=== PATIENT | male | born 1990 | race Caucasian/White ===

== ENCOUNTER → 2019-04-02 | Outpatient (CLI) | payer SELFPAY | LOC: OD 10:12 | PROVIDERS: ATTEND Student in an Organized Health Care Education/Training Program | DX: R76.0 Raised antibody titer (principal) | CPT/HCPCS: 36415 ==

== ENCOUNTER 2019-04-19 12:01 | Emergency (ER) | payer SELFPAY ==
[2019-04-19 12:06] VITALS: BP 156/79
--- NOTE | 2019-04-19 13:01 | RADIOLOGY REPORT (SQ) ---
EXAM DESCRIPTION: SHOULDER RIGHT 2 OR MORE VIEWS COMPLETED DATE/TIME: 04/19/2019 12:39 pm REASON FOR STUDY: pain after heavy lifting COMPARISON: None. NUMBER OF VIEWS: Three views. TECHNIQUE: Internal rotation, external rotation, and Y view images acquired of the right shoulder. LIMITATIONS: None. FINDINGS: MINERALIZATION: Normal. BONES: No acute fracture. No worrisome bone lesions. JOINTS: No glenohumeral dislocation. No acromioclavicular joint widening. VISUALIZED LUNGS AND RIBS: No pneumothorax. No rib fracture. SOFT TISSUES: No radiopaque foreign body. OTHER: No other significant finding. IMPRESSION: NEGATIVE STUDY OF THE RIGHT SHOULDER. NO RADIOGRAPHIC EVIDENCE OF ACUTE INJURY. TECHNICAL DOCUMENTATION: JOB ID: [id number] [employer]- All Rights Reserved Reading location - IP/workstation name: [email or web address]
--- NOTE | 2019-04-19 13:18 | ER Document Report ---
HPI - HPI Time Seen by Provider: 04/19/19 12:14 Pain Level: 2 Notes: Patient is a 29-year-old male complaining of right shoulder pain after lifting boxes at work yesterday. Patient denies any direct trauma to the area. Patient denies taking any medications prior to arrival. He states the pain is worse with movement. - CONSTITUTIONAL Constitutional: DENIES: Fever, Chills - EENT EENT: DENIES: Sore Throat, Ear Pain, Eye problems - NEURO Neurology: DENIES: Headache, Weakness, Vision blurred, Dizzinesss / Vertigo - CARDIOVASCULAR Cardiovascular: DENIES: Chest pain - RESPIRATORY Respiratory: DENIES: Trouble Breathing, Coughing - GASTROINTESTINAL Gastrointestinal: DENIES: Abdominal Pain, Black / Bloody Stools - URINARY Urinary: DENIES: Dysuria, Urgency, Frequency - MUSCULOSKELETAL Musculoskeletal: REPORTS: Extremity pain - right shouder Past Medical History - General Information source: Patient - Social History Smoking Status: Former Smoker Chew tobacco use (# tins/day): No Frequency of alcohol use: None Drug Abuse: None Family History: Reviewed & Not Pertinent Patient has suicidal ideation: No Patient has homicidal ideation: No - Medical History Medical History: Negative Renal/ Medical History: Denies: Hx Peritoneal Dialysis Past Surgical History: Reports: Hx Appendectomy - Immunizations Immunizations up to date: Yes Vertical Provider Document - CONSTITUTIONAL Notes: PHYSICAL EXAMINATION: GENERAL: Well-appearing, well-nourished and in no acute distress. HEAD: Atraumatic, normocephalic. EYES: Pupils equal round extraocular movements intact, conjunctiva are normal. ENT: Nares patent NECK: Normal range of motion LUNGS: No respiratory distress Musculoskeletal: Normal range of motion to right shoulder, tenderness over scapular area with palpation. Center Medical Director strength is equal to bilateral upper extremities, strong radial pulse. Normal sensation and motor distal to area of pain. NEUROLOGICAL: Normal speech, normal gait. PSYCH: Normal mood, normal affect. SKIN: Warm, Dry, normal turgor, no rashes or lesions noted. - INFECTION CONTROL TRAVEL OUTSIDE OF THE [place] IN LAST 30 DAYS: No Course - Re-evaluation Re-evalutation: X-ray negative for any acute fracture or dislocation of the shoulder. Likely musculoskeletal strain due to lifting boxes. Patient will be treated with ibuprofen and muscle relaxers. ED return precautions were discussed. Patient verbalized understanding of same. The patient's emergency department workup and current diagnosis were explained to the patient and or family. Follow-up instructions were provided. Medications if prescribed were discussed. Instructions for when to return to the emergency department including specific worrisome symptoms were discussed with the patient and/or family. - Vital Signs Vital signs: Temp Pulse Resp BP Pulse Ox 98.7 F 77 18 156/79 H 97 04/19/19 12:05 04/19/19 12:05 04/19/19 12:05 04/19/19 12:05 04/19/19 12:05 Discharge - Discharge Clinical Impression: Musculoskeletal strain Condition: Stable Disposition: HOME, SELF-CARE Additional Instructions: The x-ray of her shoulder was negative for any fracture dislocation. I do feel that you probably have a musculoskeletal strain considering the areas that you are having pain. I would like to start you on a muscle relaxer. Please take as prescribed. Please also take ibuprofen 600 mg every 6 hours for the next couple of days to see if this helps. If your pain does not resolve any will need you to see an orthopedic doctor one has been listed below for you. Return to the emergency department with any new or worsening symptoms. Prescriptions: Methocarbamol [Robaxin 750 mg Tablet] 750 mg PO QID #20 tablet Forms: Return to Work Referrals: OMEGA PARNELL DO [ACTIVE STAFF] - Follow up as needed
== END 2019-04-19 13:25 | disposition home or self-care (01) ==
LOC: ER 12:01
DX: S46.911A Strain of unspecified muscle, fascia and tendon at shoulder and upper arm level, right arm, initial encounter (principal); M25.511 Pain in right shoulder; X50.0XXA Overexertion from strenuous movement or load, initial encounter; Y99.0 Civilian activity done for income or pay; Z87.891 Personal history of nicotine dependence
CPT/HCPCS: 99283